=== PATIENT | male | born 1990 | race Caucasian/White ===

== ENCOUNTER → 2017-12-25 | Outpatient (CLI) | payer BC ==
[~2017-12-25] MED LIST: PROPOFOL 20 ML IV
[2017-12-25] MEDS: GADOBUTROL 7.5 MMOL/7.5 ML VIAL IV ×4 (08:55)
== END | disposition home or self-care (01) ==
LOC: KCIC MRI 08:04
DX: R51 Headache (principal); Z87.820 Personal history of traumatic brain injury; Y93.61 Activity, american tackle football
CPT/HCPCS: 70553; A9585; J2704

== ENCOUNTER → 2018-06-11 | Outpatient (CLI) | payer BC | END | disposition home or self-care (01) | LOC: ECHO 12:24 | DX: R07.89 Other chest pain (principal); Z87.820 Personal history of traumatic brain injury | CPT/HCPCS: 93017; 93350 ==